=== PATIENT | male | born 1975 | race Caucasian/White ===

== ENCOUNTER 2018-06-17 07:50 | Inpatient (IN) ==
[2018-06-17 07:59] VITALS: BMI 33.3
[2018-06-17 08:43] LABS: BASOPHILS # (AUTO) 0.1 X10^3/uL (0.0-0.1); BASOPHILS % (AUTO) 0.8 % (0.2-1.0); EOSINOPHILS # (AUTO) 0.5 x10^3/uL (0.0-0.2); EOSINOPHILS % (AUTO) 5.2 % (0.9-2.9); HEMATOCRIT 45.1 % (42.0-54.0); HEMOGLOBIN 15.5 g/dL (13.5-18.0); LYMPHOCYTES # (AUTO) 1.6 X10^3/uL (1.3-2.9); LYMPHOCYTES % (AUTO) 15.6 % (21.0-51.0); MEAN CORPUSCULAR HEMOGLOBIN 31.9 pg (27.0-34.0); MEAN CORPUSCULAR HGB CONC 34.2 g/dL (33.0-35.0); MEAN CORPUSCULAR VOLUME 93.2 fL (80.0-100.0); MEAN PLATELET VOLUME 9.4 fL (7.4-11.0); MONOCYTES % (AUTO) 9.7 % (0.0-13.0); NEUTROPHILS % (AUTO) 68.7 % (42.0-75.0); PLATELET COUNT 250 X10^3/uL (150.0-450.0); RED BLOOD COUNT 4.84 X10^6/uL (4.7-6.0); RED CELL DISTRIBUTION WIDTH 14.1 % (11.6-16.5); WHITE BLOOD COUNT 10.2 X10^3/uL (3.6-10.0)
--- NOTE | 2018-06-17 08:52 | DR.EXTPAIN ---
HPI Time seen Time Seen by Provider: 06/17/18 08:33 PCP Primary Care Physician: HERBIE Complaint/Symptoms Chief Complaint Doctor Comments: Patient admits to leg swelling for several months but recently the right calf has increased in size. He admits to tingling sensation in the right lower extremity associated with pain. He denies trauma or fever. Chief Complaint:: PT C/O RT LEG SWOLLEN. PT STATES HE NOTICED THE SWELLING STARTED FRIDAY AND IT IS GETTING WORSE. PT STATES HE IS HAVE A TINGLING SENSATION TO THE BOTTOM OF HIS FOOT. PT'S RT LEG IS NOTABLY SWOLLEN. Source History Provided: Patient Mode of arrival Mode of Arrival: Ambulatory Timing Onset of Chief Complaint: 06/14/18 PMH PMH Past Medical History: Yes Past Medical History: Hypertension Past Surgical History: No Family History History of Family Medical Conditions: No Social History Does patient currently use any type of tobacco product: Yes Have you used tobacco products in the last 12 months: Yes Type of Tobacco Use: Cigarettes Does any household member use tobacco: Yes Alcohol Use: None Do you use any recreational Drugs:: Yes (THC) Lives With: Family Lives Where: Home infectious screening In the last 2 months have you had wt loss of >10#?: NO Have you had fever, night sweats or hemotysis?: No Have you traveled outside the country in the last 6 months?: No Isolation: Standard ROS Review of Systems Constitutional: No Symptoms Reported and See HPI; negative Diaphoresis, Fever, Weakness and Irritable Eyes: No Symptoms Reported; negative Blurred Vision ENTM: negative No Symptoms Reported, Ear Discharge and Pulling on Ears Respiratoy: No Symptoms Reported and See HPI; negative Non-Productive Cough and Moist Cough Cardiovascular: No Symptoms Reported and Edema (Bilateral calf right greater than left); negative Cyanosis and Skin Mottling Gastrointestinal/Abdominal: negative No Symptoms Reported Genitourinary: No Symptoms Reported Neurological: No Symptoms Reported and Numbness (right lower extremity); negative Emotional Problems, Headache, Seizure, Weakness and Speech Problem Musculoskeletal: See HPI, Joint Swelling, Muscle Pain and Right Integumentary: No Symptoms Reported and See HPI Hematologic/Lymphatic: No Symptoms Reported Endocrine: No Symptoms Reported and See HPI Psychiatric: No Symptoms Reported All Other Systems: Reviewed and Negative PE Vital Signs Vitals: Temperature 98.2 F Pulse Rate 88 Respiratory Rate 20 Blood Pressure 161/81 O2 Sat by Pulse Oximetry 96 General Limitations: No Limitations General Appearance: Alert and In No Apparent Distress; negative Anxious and In Distress Head Head Exam: Normal Inspection, Atraumatic and Normocephalic Eyes Eye exam: Normal Appearance, PERRL and EOMI; negative Scleral Icterus, Conjunctival Injection and Periorbital Swelling ENT ENT Exam: Normal Exam, Normal Oropharynx, Normal External Ear Exam, Mucous Membranes Moist and TM's Normal Bilaterally Neck Neck Exam: Normal Inspection, Full ROM and Trachea Midline Chest Chest Inspection: Normal Inspection and Symmetric Chest Wall Rise; negative Tenderness Respiratory Respiratory Exam: Normal Lung Sounds Bilat; negative Chest Wall Tenderness, Prolonged Expiratory Phase, Respiratory Distress and Stridor Respiratory Exam: Bilateral: Clear to Auscultation Cardiovascular Cardiovascular Exam: Regular Rate and Normal Rhythm Abdominal Exam Abdominal Exam: Normal Inspection, Normal Bowel Sounds and Soft Abdominal Tenderness: negative RUQ, RLQ, LUQ, LLQ, Epigastrium and Suprapubic Extremities Extremities Exam: Tenderness (right calf), Edema and Calf Tenderness (right) Upper Extremities Shoulder Exam: Normal Inspection and Full ROM Arm Exam: Normal Inspection and Full ROM Forearm Exam: Normal Inspection and Full ROM Hand Exam: Normal Inspection and Full ROM Neuromotor Exam: Normal Exam, Wrist Extension and Thumb Opposition Hand Tendon Exam: Flexor Digitorium Profundus (Location), Flexor Digitorium Superficialis (Location) and Extensor Tendon (Location) Upper Ext. Vascular Exam: Capillary Refill Lower Extremities Hip/Pelvis Exam: Normal Inspection and Full ROM Upper Leg Exam: Normal Inspection and Full ROM Lower Leg Exam: Normal Inspection and Full ROM Ankle Exam: Normal Inspection Foot/Toe Exam: Normal Inspection and Full ROM Back Back Exam: Normal Inspection and Full ROM Neurological Neurological Exam: Alert, Oriented X3 and CN II-XII Intact Psychiatric Psychiatric Exam: Normal Affect and Normal Mood Skin Skin Exam: Warm, Dry and Normal Color; negative Rash, Cyanosis and Pallor MDM Differential Diagnosis Differential Diagnosis: Contusion and Neurovascular Injury ROR Labs Reviewed Result Diagrams: 06/17/18 08:32 06/17/18 08:32
[2018-06-17 08:54] LABS: ALANINE AMINOTRANSFERASE 27 Units/L (12-78); ALBUMIN 3.6 g/dL (3.4-5.0); ALKALINE PHOSPHATASE 144 Units/L (46-116); ASPARTATE AMINO TRANSFERASE 17 Units/L (15-37); BLOOD UREA NITROGEN 17 mg/dL (7-18); CALCIUM 9.2 mg/dL (8.5-10.1); CHLORIDE 102 mmol/L (98-107); COR NA(FOR HYPERGLY) 139 mmol/L (136-145); CREATININE 1.24 mg/dL (0.70-1.30); SODIUM 139 mmol/L (136-145); TOTAL PROTEIN 7.9 g/dL (6.4-8.2); eGFR NON BLACK RACES > 60 (>60)
--- NOTE | 2018-06-17 10:38 | VAS ---
Right lower extremity venous doppler Indication: Right leg pain Technique: Multiple gayle scale and color doppler images of the deep venous system were obtained of the right lower extremity. Comparison: None Findings: The deep venous system of the right lower extremity was evaluated from the level of the common femoral vein through the popliteal vein. Normal color flow and augmentation is observed within the common femoral vein. There is extensive, essentially occlusive DVT throughout the femoral vein, popliteal vein as well as posterior tibial vein. Impression: Positive for occlusive DVT within the femoral, popliteal and posterior tibial veins. Reported By:
[2018-06-17] MEDS ORDERED: HEPARIN SODIUM INJ 5000 UNITS ONE ×2 (11:09→17:17)
[2018-06-17] MEDS ORDERED: HEPARIN SODIUM INJ 5000 UNITS IVP ONE ×2 (11:22→17:08)
[2018-06-17] MEDS: HEPARIN SODIUM IN D5W 25,000 UNITS/500 ML BAG IV PRN ×2 (11:38→17:28)
[2018-06-18] MEDS ORDERED: AMBIEN ONE (00:01)
[2018-06-18] MEDS: AMBIEN PO PRN ×2 (00:08→23:42)
[2018-06-18] MEDS: HEPARIN SODIUM IN D5W 25,000 UNITS/500 ML BAG IV PRN ×2 (03:50→18:44)
[2018-06-18 06:13] LABS: BASOPHILS # (AUTO) 0.1 X10^3/uL (0.0-0.1); BASOPHILS % (AUTO) 1.1 % (0.2-1.0); EOSINOPHILS # (AUTO) 0.4 x10^3/uL (0.0-0.2); EOSINOPHILS % (AUTO) 5.7 % (0.9-2.9); HEMATOCRIT 45.9 % (42.0-54.0); HEMOGLOBIN 15.7 g/dL (13.5-18.0); LYMPHOCYTES # (AUTO) 1.7 X10^3/uL (1.3-2.9); MEAN CORPUSCULAR HEMOGLOBIN 31.7 pg (27.0-34.0); MEAN CORPUSCULAR HGB CONC 34.2 g/dL (33.0-35.0); MEAN CORPUSCULAR VOLUME 92.7 fL (80.0-100.0); MEAN PLATELET VOLUME 9.4 fL (7.4-11.0); MONOCYTES # (AUTO) 0.9 x10^3/uL (0.3-0.8); MONOCYTES % (AUTO) 11.9 % (0.0-13.0); NEUTROPHILS # (AUTO) 4.4 x10^3/uL (2.2-4.8); NEUTROPHILS % (AUTO) 58.3 % (42.0-75.0); PLATELET COUNT 262 X10^3/uL (150.0-450.0); RED BLOOD COUNT 4.96 X10^6/uL (4.7-6.0); RED CELL DISTRIBUTION WIDTH 14.3 % (11.6-16.5); WHITE BLOOD COUNT 7.6 X10^3/uL (3.6-10.0)
[2018-06-18 06:34] LABS: ALANINE AMINOTRANSFERASE 35 Units/L (12-78); ALBUMIN 3.5 g/dL (3.4-5.0); ALKALINE PHOSPHATASE 148 Units/L (46-116); ASPARTATE AMINO TRANSFERASE 24 Units/L (15-37); BLOOD UREA NITROGEN 14 mg/dL (7-18); CALCIUM 9.3 mg/dL (8.5-10.1); CHLORIDE 103 mmol/L (98-107); CREATININE 1.21 mg/dL (0.70-1.30); SODIUM 139 mmol/L (136-145); eGFR NON BLACK RACES > 60 (>60)
[2018-06-18] MEDS ORDERED: HEPARIN SODIUM INJ 5000 UNITS IVP ONE (13:26)
[2018-06-18 13:57] LABS: ABG BASE EXCESS 1.1 mmol/L (-2.0-2.0); ABG HCO3 25.1 mmol/L (22-26)
[2018-06-18 16:43] LABS: ERYTHROCYTE SEDIMENTATION RATE 26 MM/HOUR (0-15)
--- NOTE | 2018-06-18 17:08 | DR.H&P ---
H&P - History & Physical for Day of: H&P Date: 06/17/18 - Chief Complaint Chief Complaint: rle pain, swelling - History of Present Illness History of Present Illness: 42 WM ER ADMISSION AFTER PRESENTING WITH C/O RT LEG SWOLLEN. PT STATES HE NOTICED THE SWELLING STARTED FRIDAY AND IT IS GETTING WORSE. PT STATES HE IS HAVE A TINGLING SENSATION TO THE BOTTOM OF HIS FOOT. PT'S RT LEG IS NOTABLY SWOLLEN. PT HAD US WITH OCCLUSSIVE DVT. PT HAD NO HX OF DVT OR FAMILY HX OF DVT. PT HAS HX OF HTN, NOT CURRENTLY TAKING ANY MEDICATION. PT REPORTS INCREASED NIELSEN, DENIES CHEST PAIN. - Past Medical History Past Medical History: Hypertension - Past Surgical History Surgical History: No History - Social History Does patient currently use any type of tobacco product: No Have you used tobacco products in the last 12 months: Yes Type of Tobacco Use: Cigarettes Does any household member use tobacco: Yes Alcohol Use: None Drug Use: Marijuana - Medications Home Medications: iodine Adverse Reaction (Verified 06/17/18 07:52) CONTINUE taking the following medications allopurinol 300 mg PO DAILY PRN 06/17/18 [History] lisinopril 10 mg PO DAILY 06/17/18 [History] pantoprazole 40 mg PO BID 06/17/18 [History] - Review of Systems Constitutional: Weakness Eyes: No Symptoms Reported ENT: No Symptoms Reported Respiratory: SOB with Excertion Cardiovascular: No Symptoms Reported, Edema Gastrointestinal: No Symptoms Reported Genitourinary: No Symptoms Reported Musculoskeletal: Leg Pain Skin: No Symptoms Reported Neurological: No Symptoms Reported - Physical Exam Vital Signs: Temperature 98.6 F Pulse Rate [Right Radial] 76 Pulse Rate 80 Respiratory Rate 25 Blood Pressure [Right Arm] 110/59 Blood Pressure 154/77 O2 Sat by Pulse Oximetry 96 Oriented: Normal Eyes: Normal Ear: Normal Nose: Normal Throat: Normal Respiratory: RLL Diminished, LLL Diminished Cardiovascular: Normal, Edema (+2 RLE) : Normal Auscultation: Bowel Sounds: Normal Palpation: Normal Tenderness: Normal Skin: Normal Musculoskeletal: Right, Leg, Swelling, Tender Psychiatric: Anxiety Affect: Anxious Speech Pattern: Clear, Appropriate - Assessment/Plan (1) Deep vein thrombosis (DVT) of right lower extremity Status: Acute Plan: ADMIT, ICU HEPARIN DRIP. HYPERCOAG PANEL. PAIN CONTROL, CARDIAC MONITORING, BP CONTROL (2) Hypertension Status: Acute (3) NIELSEN (dyspnea on exertion) Status: Acute - Allergies Allergies/Adverse Reactions: Allergies Allergy/AdvReac Type Severity Reaction Status Date / Time iodine AdvReac Verified 06/17/18 07:52
--- NOTE | 2018-06-18 17:12 | PCM.PROG ---
Progress Note - Progress Note for Day of Date of Exam: 06/18/18 - Subjective Subjective: 42 WM ER ADMISSION WITH RLE DVT. PT IS CURRENTLY ON IV HEPARIN. OBTAINED HYPERCOAG PANEL AND ABG. PT CO INCREASED RIGHT ANKLE PAIN. PT CO RECENT NIELSEN. PT HAS HX HTN. ABG ORDERED R/O HYPOXIA. VQ SCAN R/O PE. PLAN TO CONVERT TO PO ELIQUIS. - Past Medical Family Social History Past Med/Fam/Surg Hx: No changes since H&P Allergies: Allergies iodine Adverse Reaction (Verified 06/17/18 07:52) - Review of Systems ROS: No change since H&P - Vital Signs and I&O's Vital Signs: Temperature 97.7 F Pulse Rate [Right Radial] 76 Pulse Rate 83 Respiratory Rate 22 Blood Pressure [Right Arm] 110/59 Blood Pressure 167/80 O2 Sat by Pulse Oximetry 95 Intake and Output: Intake & Output 06/16/18 06/17/18 06/18/18 06/19/18 11:59 11:59 11:59 11:59 Intake Total 1310 / 1310 200 / 200 Balance 1310 / 1310 200 / 200 - Physical Exam Oriented: Normal Eyes: Normal Ear: Normal Nose: Normal Throat: Normal Respiratory: Diminished Cardiovascular: Normal, Edema (+2 RLE) : Normal Auscultation: Bowel Sounds: Normal Tenderness: Normal Skin: Normal Musculoskeletal: Right, Leg, Swelling, Tender Psychiatric: Anxiety Affect: Anxious Speech Pattern: Clear, Appropriate - Laboratory and Diagnostics Result Diagrams: 06/18/18 05:35 06/18/18 05:35 Labs: Laboratory WBC 7.6 X10^3/uL (3.6-10.0) 06/18/18 05:35 RBC 4.96 X10^6/uL (4.7-6.0) 06/18/18 05:35 Hgb 15.7 g/dL (13.5-18.0) 06/18/18 05:35 Hct 45.9 % (42.0-54.0) 06/18/18 05:35 MCV 92.7 fL (80.0-100.0) 06/18/18 05:35 MCH 31.7 pg (27.0-34.0) 06/18/18 05:35 MCHC 34.2 g/dL (33.0-35.0) 06/18/18 05:35 RDW 14.3 % (11.6-16.5) 06/18/18 05:35 Plt Count 262 X10^3/uL (150.0-450.0) 06/18/18 05:35 MPV 9.4 fL (7.4-11.0) 06/18/18 05:35 Neut % (Auto) 58.3 % (42.0-75.0) 06/18/18 05:35 Lymph % (Auto) 23.0 % (21.0-51.0) 06/18/18 05:35 [place] % (Auto) 11.9 % (0.0-13.0) 06/18/18 05:35 Eos % (Auto) 5.7 % (0.9-2.9) H 06/18/18 05:35 Baso % (Auto) 1.1 % (0.2-1.0) H 06/18/18 05:35 Neut # (Auto) 4.4 x10^3/uL (2.2-4.8) 06/18/18 05:35 Lymph # (Auto) 1.7 X10^3/uL (1.3-2.9) 06/18/18 05:35 [place] # (Auto) 0.9 x10^3/uL (0.3-0.8) H 06/18/18 05:35 Eos # (Auto) 0.4 x10^3/uL (0.0-0.2) H 06/18/18 05:35 Baso # (Auto) 0.1 X10^3/uL (0.0-0.1) 06/18/18 05:35 Absolute Nucleated RBC 0.0 /100WBC 06/18/18 05:35 ESR 26 MM/HOUR (0-15) H 06/18/18 14:04 INR Target Range - 06/17/18 16:24 INR 1.00 (0.8-1.3) 06/17/18 16:24 APTT 45.0 SECONDS (22.9-36.5) H 06/18/18 11:41 PTT Comment - 06/18/18 11:41 D-Dimer 2300 ng/mL (0-400) H* 06/17/18 08:32 Sample Site Right brachial 04/11/19 13:50 ABG pH 7.440 (7.35-7.45) 06/18/18 13:50 ABG pCO2 37.0 mmHg (35.0-45.0) 06/18/18 13:50 ABG pO2 72.0 mmHg (80.0-100.0) L 06/18/18 13:50 ABG HCO3 25.1 mmol/L (22-26) 06/18/18 13:50 ABG O2 Saturation 95.0 % (90-100) 06/18/18 13:50 ABG Base Excess 1.1 mmol/L (-2.0-2.0) 06/18/18 13:50 Juan C Test Na 06/18/18 13:50 A-a Gradient 31.0 mmHg 06/18/18 13:50 FiO2 21.0 06/18/18 13:50 Blood Gas Comments Rodney well aw 06/18/18 13:50 Sodium 139 mmol/L (136-145) 06/18/18 05:35 Corrected Sodium TNP 06/18/18 05:35 Potassium 3.9 mmol/L (3.5-5.1) 06/18/18 05:35 Chloride 103 mmol/L (98-107) 06/18/18 05:35 Carbon Dioxide 25.0 mmol/L (21-32) 06/18/18 05:35 BUN 14 mg/dL (7-18) 06/18/18 05:35 Creatinine 1.21 mg/dL (0.70-1.30) 06/18/18 05:35 Est GFR (MDRD) Af Amer > 60 (>60) 06/18/18 05:35 Est GFR (MDRD) Non-Af > 60 (>60) 06/18/18 05:35 Glucose 109 mg/dL (65-99) H 06/18/18 05:35 Calcium 9.3 mg/dL (8.5-10.1) 06/18/18 05:35 Corrected Calcium TNP 06/18/18 05:35 Total Bilirubin 0.60 mg/dL (0.2-1.0) 06/18/18 05:35 AST 24 Units/L (15-37) 06/18/18 05:35 ALT 35 Units/L (12-78) 06/18/18 05:35 Alkaline Phosphatase 148 Units/L (46-116) H 06/18/18 05:35 C-Reactive Protein 42.90 mg/L (0-3.0) H 06/18/18 14:04 Total Protein 8.0 g/dL (6.4-8.2) 06/18/18 05:35 Albumin 3.5 g/dL (3.4-5.0) 06/18/18 05:35 Globulin 4.5 g/dL (2.5-4.5) 06/18/18 05:35 Albumin/Globulin Ratio 0.8 Ratio (1.1-2.1) L 06/18/18 05:35 - Plan (1) Deep vein thrombosis (DVT) of right lower extremity Status: Acute Plan: ICU HEPARIN DRIP. HYPERCOAG PANEL\. ABG, VQ SCAN. PAIN CONTROL, CARDIAC MONITORING, BP CONTROL (2) Hypertension Status: Acute (3) NIELSEN (dyspnea on exertion) Status: Acute
[2018-06-18] MEDS: ZESTRIL TAB 5 MG PO SCH (19:00)
[2018-06-18] MEDS: NORCO 5/325 MG TAB PO PRN (20:56)
[2018-06-18] MEDS: PROTONIX TAB 40 MG PO SCH (20:56)
[2018-06-19] MEDS: HEPARIN SODIUM IN D5W 25,000 UNITS/500 ML BAG IV PRN (04:54)
[2018-06-19 05:37] LABS: BASOPHILS # (AUTO) 0.1 X10^3/uL (0.0-0.1); EOSINOPHILS # (AUTO) 0.5 x10^3/uL (0.0-0.2); HEMATOCRIT 44.7 % (42.0-54.0); HEMOGLOBIN 15.3 g/dL (13.5-18.0); LYMPHOCYTES # (AUTO) 2.3 X10^3/uL (1.3-2.9); LYMPHOCYTES % (AUTO) 29.6 % (21.0-51.0); MEAN CORPUSCULAR HEMOGLOBIN 31.7 pg (27.0-34.0); MEAN CORPUSCULAR HGB CONC 34.3 g/dL (33.0-35.0); MEAN CORPUSCULAR VOLUME 92.4 fL (80.0-100.0); MEAN PLATELET VOLUME 10.1 fL (7.4-11.0); MONOCYTES # (AUTO) 0.9 x10^3/uL (0.3-0.8); NEUTROPHILS # (AUTO) 4.1 x10^3/uL (2.2-4.8); NEUTROPHILS % (AUTO) 51.4 % (42.0-75.0); PLATELET COUNT 271 X10^3/uL (150.0-450.0); RED BLOOD COUNT 4.84 X10^6/uL (4.7-6.0); RED CELL DISTRIBUTION WIDTH 14.4 % (11.6-16.5); WHITE BLOOD COUNT 7.9 X10^3/uL (3.6-10.0)
[2018-06-19 05:43] LABS: ALANINE AMINOTRANSFERASE 45 Units/L (12-78); ALBUMIN 3.3 g/dL (3.4-5.0); ALKALINE PHOSPHATASE 151 Units/L (46-116); ASPARTATE AMINO TRANSFERASE 27 Units/L (15-37); BLOOD UREA NITROGEN 14 mg/dL (7-18); CALCIUM 9.3 mg/dL (8.5-10.1); CARBON DIOXIDE 24.1 mmol/L (21-32); CHLORIDE 102 mmol/L (98-107); COR CA(FOR HYPOALB) 9.9 mg/dL (8.5-10.1); CREATININE 1.16 mg/dL (0.70-1.30); SODIUM 137 mmol/L (136-145); TOTAL PROTEIN 7.6 g/dL (6.4-8.2); eGFR NON BLACK RACES > 60 (>60)
[2018-06-19] MEDS: PROTONIX TAB 40 MG PO SCH (08:09)
[2018-06-19] MEDS: NORCO 5/325 MG TAB PO PRN ×2 (08:09→22:57)
[2018-06-19] MEDS: ZESTRIL TAB 5 MG PO SCH (08:10)
[2018-06-19] MEDS ORDERED: PEPCID 20 MG IV PREMIX* 20 MG/50 ML BAG IV ONE (09:03)
[2018-06-19] MEDS: PriLOSEC PO SCH (09:08)
[2018-06-19] MEDS: ELIQUIS PO SCH ×2 (09:08→20:06)
--- NOTE | 2018-06-19 13:15 | PCM.PROG ---
Progress Note - Progress Note for Day of Date of Exam: 06/19/18 - Subjective Subjective: 42 WM ER ADMISSION WITH RLE DVT. HAS BEEN ON IV HEPARIN, PLAN TO D/C AND START ELIQUIS PO. PT IS NPO FOR VQ LUNG SCAN RO PE. PT WAS STARTED ON LISINOPRIL, WITH STABLE BP. PT DENIES ANY CHEST PAIN THIS AM. PT CO CONTINUES RLE PAIN AND INDIGESTION. - Past Medical Family Social History Past Med/Fam/Surg Hx: No changes since H&P Allergies: Allergies iodine Adverse Reaction (Verified 06/17/18 07:52) - Review of Systems ROS: No change since H&P - Vital Signs and I&O's Vital Signs: Temperature 98.4 F Pulse Rate [Right Radial] 76 Pulse Rate 81 Respiratory Rate 3 Blood Pressure [Right Arm] 110/59 Blood Pressure 141/70 O2 Sat by Pulse Oximetry 97 Intake and Output: Intake & Output 06/17/18 06/18/18 06/19/18 06/20/18 11:59 11:59 11:59 11:59 Intake Total 1310 / 1310 1000 / 1000 Balance 1310 / 1310 1000 / 1000 - Physical Exam Oriented: Normal Eyes: Normal Ear: Normal Nose: Normal Throat: Normal Respiratory: Diminished Cardiovascular: Normal, Edema (+2 RLE) : Normal Auscultation: Bowel Sounds: Normal Tenderness: Normal Skin: Normal Musculoskeletal: Right, Leg, Swelling, Tender Psychiatric: Anxiety Affect: Anxious Speech Pattern: Clear, Appropriate - Laboratory and Diagnostics Result Diagrams: 06/19/18 04:28 06/19/18 04:28 Labs: Laboratory WBC 7.9 X10^3/uL (3.6-10.0) 06/19/18 04:28 RBC 4.84 X10^6/uL (4.7-6.0) 06/19/18 04:28 Hgb 15.3 g/dL (13.5-18.0) 06/19/18 04:28 Hct 44.7 % (42.0-54.0) 06/19/18 04:28 MCV 92.4 fL (80.0-100.0) 06/19/18 04:28 MCH 31.7 pg (27.0-34.0) 06/19/18 04:28 MCHC 34.3 g/dL (33.0-35.0) 06/19/18 04:28 RDW 14.4 % (11.6-16.5) 06/19/18 04:28 Plt Count 271 X10^3/uL (150.0-450.0) 06/19/18 04:28 MPV 10.1 fL (7.4-11.0) 06/19/18 04:28 Neut % (Auto) 51.4 % (42.0-75.0) 06/19/18 04:28 Lymph % (Auto) 29.6 % (21.0-51.0) 06/19/18 04:28 [place] % (Auto) 12.0 % (0.0-13.0) 06/19/18 04:28 Eos % (Auto) 6.0 % (0.9-2.9) H 06/19/18 04:28 Baso % (Auto) 1.0 % (0.2-1.0) 06/19/18 04:28 Neut # (Auto) 4.1 x10^3/uL (2.2-4.8) 06/19/18 04:28 Lymph # (Auto) 2.3 X10^3/uL (1.3-2.9) 06/19/18 04:28 [place] # (Auto) 0.9 x10^3/uL (0.3-0.8) H 06/19/18 04:28 Eos # (Auto) 0.5 x10^3/uL (0.0-0.2) H 06/19/18 04:28 Baso # (Auto) 0.1 X10^3/uL (0.0-0.1) 06/19/18 04:28 Absolute Nucleated RBC 0.2 /100WBC 06/19/18 04:28 ESR 26 MM/HOUR (0-15) H 06/18/18 14:04 INR Target Range - 06/17/18 16:24 INR 1.00 (0.8-1.3) 06/17/18 16:24 APTT 70.5 SECONDS (22.9-36.5) H 06/19/18 08:23 PTT Comment - 06/19/18 08:23 D-Dimer 2300 ng/mL (0-400) H* 06/17/18 08:32 Sample Site Right brachial 06/18/18 13:50 ABG pH 7.440 (7.35-7.45) 06/18/18 13:50 ABG pCO2 37.0 mmHg (35.0-45.0) 06/18/18 13:50 ABG pO2 72.0 mmHg (80.0-100.0) L 06/18/18 13:50 ABG HCO3 25.1 mmol/L (22-26) 06/18/18 13:50 ABG O2 Saturation 95.0 % (90-100) 06/18/18 13:50 ABG Base Excess 1.1 mmol/L (-2.0-2.0) 06/18/18 13:50 Juan C Test Na 06/18/18 13:50 A-a Gradient 31.0 mmHg 06/18/18 13:50 FiO2 21.0 06/18/18 13:50 Blood Gas Comments Rodney well aw 06/18/18 13:50 Sodium 137 mmol/L (136-145) 06/19/18 04:28 Corrected Sodium TNP 06/19/18 04:28 Potassium 3.8 mmol/L (3.5-5.1) 06/19/18 04:28 Chloride 102 mmol/L (98-107) 06/19/18 04:28 Carbon Dioxide 24.1 mmol/L (21-32) 06/19/18 04:28 BUN 14 mg/dL (7-18) 06/19/18 04:28 Creatinine 1.16 mg/dL (0.70-1.30) 06/19/18 04:28 Est GFR (MDRD) Af Amer > 60 (>60) 06/19/18 04:28 Est GFR (MDRD) Non-Af > 60 (>60) 06/19/18 04:28 Glucose 110 mg/dL (65-99) H 06/19/18 04:28 Calcium 9.3 mg/dL (8.5-10.1) 06/19/18 04:28 Corrected Calcium 9.9 mg/dL (8.5-10.1) 06/19/18 04:28 Total Bilirubin 0.40 mg/dL (0.2-1.0) 06/19/18 04:28 AST 27 Units/L (15-37) 06/19/18 04:28 ALT 45 Units/L (12-78) 06/19/18 04:28 Alkaline Phosphatase 151 Units/L (46-116) H 06/19/18 04:28 C-Reactive Protein 42.90 mg/L (0-3.0) H 06/18/18 14:04 Total Protein 7.6 g/dL (6.4-8.2) 06/19/18 04:28 Albumin 3.3 g/dL (3.4-5.0) L 06/19/18 04:28 Globulin 4.3 g/dL (2.5-4.5) 06/19/18 04:28 Albumin/Globulin Ratio 0.8 Ratio (1.1-2.1) L 06/19/18 04:28 - Plan (1) Deep vein thrombosis (DVT) of right lower extremity Status: Acute Plan: D/C HEPARIN DRIP, START ON ELIQUIS. HYPERCOAG PANEL\. ABG, VQ SCAN R/O PE. PAIN CONTROL, CARDIAC MONITORING, BP CONTROL (2) Hypertension Status: Acute (3) NIELSEN (dyspnea on exertion) Status: Acute
[2018-06-19] MEDS ORDERED: PREDNISONE TAB 10 MG PO ONE ×2 (17:00→23:00)
[2018-06-19] MEDS: AMBIEN PO PRN (22:58)
[2018-06-20] MEDS ORDERED: PREDNISONE TAB 20 MG PO ONE (05:00)
[2018-06-20] MEDS ORDERED: BENADRYL CAP 50 MG PO ONE (05:00)
--- NOTE | 2018-06-20 06:19 | CT ---
History: Shortness of breath Exam: CT chest with contrast Comparison: None Technique: Axial spiral images were obtained from the level above the clavicles through the adrenals after bolus administration IV contrast. The patient underwent allergy prep 13 hr prior to the procedure. Automated dose control was utilized. Findings: The thyroid gland is unremarkable. The aorta is well opacified and normal caliber. The pulmonary arteries are well opacified and normal caliber with no obvious large filling defects seen. There is no mediastinal mass or adenopathy is seen. The adrenals are normal and the visualized upper abdomen is unremarkable. The lungs are hyperinflated and emphysematous . There are mild subsegmental linear opacities along the lung bases posterior laterally which is more prominent on the left. No effusion is seen. There is no pulmonary nodule or mass . The bones are intact. IMPRESSION: Unremarkable aorta and pulmonary arteries with no mediastinal mass or adenopathy. Mild chronic obstructive lung changes with mild bibasilar atelectasis vs early infiltrates or scarring which is more prominent on the left . Suggest follow-up with chest x-rays. Reported By:
[2018-06-20 06:31] LABS: BASOPHILS % (AUTO) 0.3 % (0.2-1.0); HEMATOCRIT 45.4 % (42.0-54.0); HEMOGLOBIN 15.4 g/dL (13.5-18.0); LYMPHOCYTES # (AUTO) 1.1 X10^3/uL (1.3-2.9); LYMPHOCYTES % (AUTO) 14.7 % (21.0-51.0); MEAN CORPUSCULAR HEMOGLOBIN 31.6 pg (27.0-34.0); MEAN CORPUSCULAR HGB CONC 33.9 g/dL (33.0-35.0); MEAN CORPUSCULAR VOLUME 93.2 fL (80.0-100.0); MEAN PLATELET VOLUME 9.5 fL (7.4-11.0); MONOCYTES # (AUTO) 0.1 x10^3/uL (0.3-0.8); MONOCYTES % (AUTO) 1.9 % (0.0-13.0); NEUTROPHILS # (AUTO) 6.4 x10^3/uL (2.2-4.8); NEUTROPHILS % (AUTO) 83.1 % (42.0-75.0); PLATELET COUNT 304 X10^3/uL (150.0-450.0); RED BLOOD COUNT 4.87 X10^6/uL (4.7-6.0); RED CELL DISTRIBUTION WIDTH 14.1 % (11.6-16.5); WHITE BLOOD COUNT 7.7 X10^3/uL (3.6-10.0)
[2018-06-20 06:46] LABS: ALANINE AMINOTRANSFERASE 46 Units/L (12-78); ALBUMIN 3.4 g/dL (3.4-5.0); ALKALINE PHOSPHATASE 158 Units/L (46-116); ASPARTATE AMINO TRANSFERASE 22 Units/L (15-37); BLOOD UREA NITROGEN 18 mg/dL (7-18); CALCIUM 9.6 mg/dL (8.5-10.1); CARBON DIOXIDE 25.2 mmol/L (21-32); CHLORIDE 103 mmol/L (98-107); COR NA(FOR HYPERGLY) 141 mmol/L (136-145); CREATININE 1.29 mg/dL (0.70-1.30); MAGNESIUM 1.9 mg/dL (1.7-2.9); SODIUM 139 mmol/L (136-145); TOTAL PROTEIN 7.9 g/dL (6.4-8.2); eGFR NON BLACK RACES > 60 (>60)
[2018-06-20] MEDS ORDERED: ZITHROMAX TAB 250 MG PO ONE (08:49)
[2018-06-20] MEDS: PriLOSEC PO SCH (09:18)
[2018-06-20] MEDS: ZESTRIL TAB 5 MG PO SCH (09:18)
[2018-06-20] MEDS: ELIQUIS PO SCH (09:18)
[2018-06-20 10:40] VITALS: BP 144/76
[2018-06-22 06:10] LABS: ANTI-NUCLEAR ANTIBODY TEST None Detected (None Detected)
[2018-06-22 06:14] LABS: PROTEIN C ACTIVITY 159 % (83-168)
[2018-06-22 06:46] LABS: REPTILASE TIME 17.2; THROMBIN TIME 86.6
[2018-06-22 15:44] LABS: PROTHROMBIN G20210A Negative
[2018-06-23 06:26] LABS: ANTITHROMBIN III ACTIVITY 89 % (76-128)
== END 2018-06-20 10:43 | disposition home or self-care (01) | DRG 301 ==
LOC: ER 07:50 → ICU 13:03
PROVIDERS: ADMIT Internal Medicine; ATTEND Internal Medicine
DX: R79.1 Abnormal coagulation profile; I82.431 Acute embolism and thrombosis of right popliteal vein; I10 Essential (primary) hypertension; R94.31 Abnormal electrocardiogram [ECG] [EKG]; I82.441 Acute embolism and thrombosis of right tibial vein; I82.411 Acute embolism and thrombosis of right femoral vein; R60.0 Localized edema; R06.09 Other forms of dyspnea
CPT/HCPCS: 36415; 36600; 71260; 80053; 81240; 82615; 82803; 83090; 83735; 85025; 85300; 85303; 85305; 85306; 85307; 85378; 85525; 85597; 85610; 85613; 85635; 85652; 85670; 85730; 85732; 86038; 86140; 86308; 93005; 93971; 96365; 96374; 96375; 99284; A4216; A4222; Q0144; S0028; J1644; J7512